=== PATIENT | female | born 1955 | race Caucasian/White ===

== ENCOUNTER 2017-04-15 09:06 | Day surgery (SDC) | payer BC ==
[~2017-04-15] VITALS: Ht 170.2 cm; Wt 79.6 kg
[~2017-04-15 09:06] MED LIST: ASPI325 PO; ASPI81CH PO; ESCI10 PO; ESTR1 PO; ESTR2 PO; IBUP600 PO; LEVSOD137 PO; LIOT5 PO; LISI20 PO; OMEP20ER PO; OXYB5 PO; PROG100; VITAMIN D PO; [UNRECOGNIZED DRUG - OTHER]
== END 2017-04-15 12:28 | disposition home or self-care (01) ==
LOC: ORSCSDS 09:06
PROVIDERS: Internal Medicine Gastroenterology
PROC: 0DBM8ZX Excision of Descending Colon, Via Natural or Artificial Opening Endoscopic, Diagnostic (ICD-10-PCS; principal; 2017-04-15 10:30)
PROC: 0DB68ZX Excision of Stomach, Via Natural or Artificial Opening Endoscopic, Diagnostic (ICD-10-PCS; principal; 2017-04-15 10:30)
PROC: 0D757ZZ Dilation of Esophagus, Via Natural or Artificial Opening (ICD-10-PCS; principal; 2017-04-15 10:30)
PROC: 0DBK8ZX Excision of Ascending Colon, Via Natural or Artificial Opening Endoscopic, Diagnostic (ICD-10-PCS; principal; 2017-04-15 10:30)
PROC: 0DBN8ZX Excision of Sigmoid Colon, Via Natural or Artificial Opening Endoscopic, Diagnostic (ICD-10-PCS; principal; 2017-04-15 10:30)
PROC: 0DB58ZX Excision of Esophagus, Via Natural or Artificial Opening Endoscopic, Diagnostic (ICD-10-PCS; principal; 2017-04-15 10:30)
DX: R13.14 Dysphagia, pharyngoesophageal phase (principal); K21.9 Gastro-esophageal reflux disease without esophagitis; K22.70 Barrett's esophagus without dysplasia; K29.70 Gastritis, unspecified, without bleeding; K44.9 Diaphragmatic hernia without obstruction or gangrene; Z86.010 Personal history of colon polyps; D12.4 Benign neoplasm of descending colon; D12.2 Benign neoplasm of ascending colon; D12.5 Benign neoplasm of sigmoid colon; K57.30 Diverticulosis of large intestine without perforation or abscess without bleeding; Z80.0 Family history of malignant neoplasm of digestive organs
CPT/HCPCS: 88305; J2405

== ENCOUNTER 2018-02-25 08:40 | Day surgery (SDC) | payer BC ==
[~2018-02-25] VITALS: Ht 170.2 cm; Wt 81.6 kg
[~2018-02-25 08:40] MED LIST changes: +ALPHA LIPOIC ACID; +COLE1 PO; +Hair, Skin & N1 EACH PO; +IRON SUPPLEMENT PO; -LEVSOD137 PO; +Prinivil10 MG PO; +Synthroid112 MCG PO; +VITAMIN D34000 UNIT PO
--- NOTE | 2018-02-25 12:57 | NUR ---
02/25/18 Gail Simons PT IS RESTING IN RECLINER WITH AUNT AT CHAIRSIDE, HER AUNT HAD LEFT TO RUN AN ERRAND BUT IS BACK NOW, PT HAS NO PAIN AND NO NAUSEA. WILL GO OVER DISCHARGE TEACHING.
== END 2018-02-25 13:35 | disposition home or self-care (01) ==
LOC: ORSCSDS 08:40
PROVIDERS: Orthopaedic Surgery
PROC: 0LS14ZZ Reposition Right Shoulder Tendon, Percutaneous Endoscopic Approach (ICD-10-PCS; principal; 2018-02-25 09:50)
PROC: 0LQ14ZZ Repair Right Shoulder Tendon, Percutaneous Endoscopic Approach (ICD-10-PCS; principal; 2018-02-25 09:50)
PROC: 0PB94ZZ Excision of Right Clavicle, Percutaneous Endoscopic Approach (ICD-10-PCS; principal; 2018-02-25 09:50)
PROC: 0RNJ4ZZ Release Right Shoulder Joint, Percutaneous Endoscopic Approach (ICD-10-PCS; principal; 2018-02-25 09:50)
DX: M75.111 Incomplete rotator cuff tear or rupture of right shoulder, not specified as traumatic (principal); M75.41 Impingement syndrome of right shoulder; M19.011 Primary osteoarthritis, right shoulder; I10 Essential (primary) hypertension; E78.1 Pure hyperglyceridemia; E03.9 Hypothyroidism, unspecified; K21.9 Gastro-esophageal reflux disease without esophagitis; Z79.82 Long term (current) use of aspirin; Z79.899 Other long term (current) drug therapy
CPT/HCPCS: C1713; J0171; J0690; J1100; J1885; J2250; J2405; J3010; J7120

== ENCOUNTER 2018-08-19 09:31 | Emergency (ER) | payer MEDICARE, BC ==
[~2018-08-19] VITALS: Ht 167.6 cm; Wt 81.7 kg
[2018-08-19 09:57] LABS: Source, Urine Clean Catch
[2018-08-19 10:08] LABS: Appearance, Urine Clear (Clear); Blood, Urine 3+ (Neg); Color, Urine Yellow (P-Yellow); Glucose Qualitative, Urine Neg (Neg); Ketones, Urine 3+ (Neg); Leukocyte Esterase, Urine 2+ (Neg); Nitrite, Urine Neg (Neg); Protein, Urine 2+ (Neg); Specific Gravity, Urine 1.025 (1.003-1.022); Urobilinogen, Urine 1+ (Normal)
[2018-08-19 10:16] LABS: BASOPHILS ABSOLUTE AUTO 0.04 K/mm3 (0.00-0.23); BASOPHILS PERCENT AUTO 0 % (0-2); EOSINOPHILS PERCENT AUTO 0 % (0-6); Hematocrit 43.2 % (33.0-51.0); Hemoglobin 13.9 g/dL (11.5-16.0); IMMATURE GRAN ABSOLUTE AUTO 0.07 K/mm3 (0.00-0.10); IMMATURE GRAN PERCENT AUTO 1 % (0-1); LYMPHOCYTES ABSOLUTE AUTO 1.07 K/mm3 (0.84-5.20); LYMPHOCYTES PERCENT AUTO 8 % (21-46); MONOCYTES ABSOLUTE AUTO 0.82 K/mm3 (0.16-1.47); MONOCYTES PERCENT AUTO 6 % (4-13); Mean Corpuscular HGB 28.3 pg (26.0-34.0); Mean Corpuscular HGB Conc 32.2 g/dL (31.5-36.5); Mean Corpuscular Volume 88 fL (80-100); Mean Platelet Volume 9.1 fL (9.1-12.4); NEUTROPHILS ABSOLUTE AUTO 11.19 K/mm3 (1.96-9.15); NEUTROPHILS PERCENT AUTO 85 % (41-73); Platelet Count 306 K/mm3 (150-400); RDW Coefficient Variation 13.2 % (11.7-14.2); RDW Standard Deviation 42.8 fL (35.1-46.3); Red Blood Cell Count 4.92 M/mm3 (3.80-5.20); White Blood Cell Count 13.19 K/mm3 (4.00-11.30)
[2018-08-19 10:20] LABS: Bilirubin, Urine 1+ (Neg)
[2018-08-19 10:24] LABS: Bacteria Mod /hpf; Squamous Epithelial Cells Many /hpf (Few)
[2018-08-19 10:25] LABS: Mucus Light (0-Heavy)
[2018-08-19 10:41] LABS: Alanine Aminotransfer (ALT/SGP 41 U/L (12-78); Albumin, Blood 3.7 g/dL (3.4-5.0); Albumin/Globulin Ratio 0.8 (0.8-1.8); Alk Phos 118 U/L (50-136); Anion Gap 8 mmol/L (6-16); Aspartate Aminotrans (AST/SGOT 41 U/L (12-37); Bilirubin, Total 0.5 mg/dL (0.1-1.0); Blood Urea Nitrogen 19 mg/dL (8-24); Bun/Creatinine Ratio 19.9 (12.0-20.0); CO2, Blood 23 mmol/L (21-32); Calcium, Blood 9.2 mg/dL (8.5-10.1); Chloride, Blood 97 mmol/L (98-108); Creatinine, Blood 0.96 mg/dL (0.40-1.00); Globulin, Blood 4.5 g/dL (2.2-4.0); Glomerular Filtration Rate >60 (60-); Glucose, Blood 121 mg/dL (70-99); Sodium, Blood 128 mmol/L (136-145); Total Protein, Blood 8.2 g/dL (6.4-8.2)
[2018-08-19 11:32] LABS: Source, Urine Catheter
[2018-08-19 11:36] LABS: Appearance, Urine Clear (Clear); Bilirubin, Urine Neg (Neg); Blood, Urine 3+ (Neg); Color, Urine Yellow (P-Yellow); Glucose Qualitative, Urine Neg (Neg); Ketones, Urine 3+ (Neg); Leukocyte Esterase, Urine 1+ (Neg); Nitrite, Urine Neg (Neg); Protein, Urine 2+ (Neg); Urobilinogen, Urine NORM (Normal)
[2018-08-19 12:00] LABS: White Blood Cells, Urine 0-2 /hpf (0-5)
[2018-08-19 12:02] LABS: Bacteria Few /hpf; Squamous Epithelial Cells Mod /hpf (Few)
[2018-08-19 12:03] LABS: Mucus Mod (0-Heavy)
[2018-08-19] MEDS ORDERED: Zithromax250 MG PO (13:41)
[2018-10-28] MEDS ORDERED: ASCO500 PO (09:30)
[2018-10-28] MEDS ORDERED: ALPHA LIPOIC ACID PO (09:31)
[2018-10-28] MEDS ORDERED: NAPR500 PO (09:32)
== END 2018-08-19 13:55 | disposition home or self-care (01) ==
LOC: ER 09:31
PROVIDERS: Emergency Medicine
DX: J18.9 Pneumonia, unspecified organism (principal); I10 Essential (primary) hypertension; E03.9 Hypothyroidism, unspecified
CPT/HCPCS: 36415; 71046; 80053; 81001; 83690; 85025; 87086; 93005; 93010; 96361; 96374; 99284-25; J1885; J7120; P9612

== ENCOUNTER 2018-11-09 16:09 | Inpatient (IN) | payer MEDICARE, BC ==
[~2018-11-09] VITALS: Ht 167.6 cm; Wt 81.1 kg
[~2018-11-09 16:09] MED LIST changes: +ALPHA LIPOIC ACID PO; +ASCO500 PO; +NAPR500 PO; +Zithromax250 MG PO
--- NOTE | 2018-11-11 08:13 | NUR ---
PT ADMITTED TO [facility]. AGREES WITH PLANNED SURGERY. LUNG SOUNDS CLEAR.
--- NOTE | 2018-11-11 08:18 | NUR ---
NOZIN NO NARES BILATERALLTY.
--- NOTE | 2018-11-11 08:48 | NUR ---
UP TO BATHROOM TO VOID.
--- NOTE | 2018-11-11 12:10 | NUR ---
pt arrived to the room via own bed, a/0 x 4, pleasant/cooperative, family with pt. post op vs commenced and stable. pt denies n/v. Spinal anesthesia done in surgery with sensation to L3, unable to wiggle toes, capillary refill <3 seconds, ble warm/pink.
--- NOTE | 2018-11-11 17:51 | NUR ---
SHIFT SUMMARY: PHIL HAD AN ELECTIVE RIGHT HIP ARTHROPLASTY BY DR. WEBER TODAY. SHE HAS BEEN UP AND WALKING, WORKED WITH PT THIS AFTERNOON. SHE IS TOLERATING PO INTAKE WELL. CRISTIAN HOSE, PAS, AND POLAR PACK IN PLACE. A&O X4. SHE IS ABLE TO MAKE HER NEEDS KNOWN. SHE HAS VOIDED POST-OPERATIVELY. SHE HAS THE HISTORY OF NEUROPATHY IN HER FEET, HYPOTHYROIDISM, HTN, ARTHRITIS, ANEMIA, GERD AND REMOTE HISTORY OF CHOKING EASILY. SHE IS LYING IN THE RECLINER WITH HER CALL LIGHT IN REACH.
[2018-11-12 04:23] LABS: BASOPHILS ABSOLUTE AUTO 0.02 K/mm3 (0.00-0.23); BASOPHILS PERCENT AUTO 0 % (0-2); EOSINOPHILS PERCENT AUTO 0 % (0-6); Hematocrit 34.1 % (33.0-51.0); Hemoglobin 11.1 g/dL (11.5-16.0); IMMATURE GRAN ABSOLUTE AUTO 0.05 K/mm3 (0.00-0.10); IMMATURE GRAN PERCENT AUTO 0 % (0-1); LYMPHOCYTES ABSOLUTE AUTO 1.53 K/mm3 (0.84-5.20); LYMPHOCYTES PERCENT AUTO 12 % (21-46); MONOCYTES PERCENT AUTO 6 % (4-13); Mean Corpuscular HGB 28.2 pg (26.0-34.0); Mean Corpuscular HGB Conc 32.6 g/dL (31.5-36.5); Mean Corpuscular Volume 87 fL (80-100); Mean Platelet Volume 8.6 fL (9.1-12.4); NEUTROPHILS ABSOLUTE AUTO 10.18 K/mm3 (1.96-9.15); NEUTROPHILS PERCENT AUTO 81 % (41-73); Platelet Count 295 K/mm3 (150-400); RDW Coefficient Variation 13.3 % (11.7-14.2); RDW Standard Deviation 42.3 fL (35.1-46.3); Red Blood Cell Count 3.93 M/mm3 (3.80-5.20); White Blood Cell Count 12.58 K/mm3 (4.00-11.30)
[2018-11-12 04:39] LABS: Anion Gap 5 mmol/L (6-16); Blood Urea Nitrogen 24 mg/dL (8-24); Bun/Creatinine Ratio 26.1 (12.0-20.0); CO2, Blood 30 mmol/L (21-32); Chloride, Blood 103 mmol/L (98-108); Creatinine, Blood 0.92 mg/dL (0.40-1.00); Glomerular Filtration Rate >60 (60-); Glucose, Blood 116 mg/dL (70-99); Potassium, Blood 4.5 mmol/L (3.5-5.5); Sodium, Blood 138 mmol/L (136-145)
--- NOTE | 2018-11-12 06:03 | NUR ---
Patient A/O x4. VSS. CMS intact. Ambulating in hallway with staff. Complaints of moderate pain, medicated as ordered. Voiding freely. Polar Ice applied to R hip. Dressing D/C/I.
[2018-11-12] MEDS ORDERED: Aspir 8181 MG PO (08:38)
[2018-11-12] MEDS ORDERED: Percocet 5-3251 EACH PO (08:39)
--- NOTE | 2018-11-12 10:31 | NUR ---
THERAPY: PT UP TO WORK WITH THERAPY. AMBULATING WELL. PAIN MANAGED WITH PRN AND SCHEDULED MEDS.
--- NOTE | 2018-11-12 15:25 | NUR ---
DISCHARGE: PT DC TO HOME AT THIS TIME WITH FAMILY. VERBALIZED UNDERSTANDING OF INSTRUCTIONS, FOLLOW UP, PROBLEMS TO REPORT AND MEDICATIONS. SCRIPT FOR PAIN MEDS GIVEN. ASPIRIN CALLED TO PHARMACY. PT LEFT VIA WHEELCHAIR TO CAR WITH BELONGINGS.
== END 2018-11-12 15:32 | disposition home or self-care (01) | DRG 470 ==
LOC: SURS 11-11 07:24 → PRE IP 11-11 07:30 → SURS 11-11 12:25
PROVIDERS: ADMIT Orthopaedic Surgery
PROC: 0SR904A Replacement of Right Hip Joint with Ceramic on Polyethylene Synthetic Substitute, Uncemented, Open Approach (ICD-10-PCS; principal; 2018-11-11 08:45)
DX: M16.11 Unilateral primary osteoarthritis, right hip (principal); E87.1 Hypo-osmolality and hyponatremia; I10 Essential (primary) hypertension; E03.9 Hypothyroidism, unspecified; K21.9 Gastro-esophageal reflux disease without esophagitis
CPT/HCPCS: 36415; 72170; 80048; 85025; 86850; 86900; 86901; 88300; 97110; 97116; 97162; C1776; J0171; J0690; J0735; J1100; J1885; J2250; J2370; J2405; J2795; J3010; J7120

== ENCOUNTER 2019-01-11 08:04 | Day surgery (SDC) | payer MEDICARE, BC ==
[~2019-01-11] VITALS: Ht 170.2 cm; Wt 80.8 kg
[~2019-01-11 08:04] MED LIST changes: +Aspir 8181 MG PO; +Percocet 5-3251 EACH PO
--- NOTE | 2019-01-11 09:27 | NUR ---
01/11/19 0927 Re Marroquin INTERSCALENE NERVE BLOCK PERFORMED IN PRE-OP. 0913: TIME OUT 0914: SITE CHECK PERFORMED 0915: PROCEDURE START 0920: PROCEDURE END PULSE OX ON THROUGHOUT PROCEDURE, VS STABLE, PT TOLERATED WELL, NO ISSUES OR COMPLICATION. POST-PROCEDURE VS: 114/69, 85BPM, 95%, 18RR.
== END 2019-01-11 12:43 | disposition home or self-care (01) ==
LOC: ORSCSDS 08:04
PROVIDERS: Orthopaedic Surgery
PROC: 0RBJ4ZZ Excision of Right Shoulder Joint, Percutaneous Endoscopic Approach (ICD-10-PCS; principal; 2019-01-11 09:30)
PROC: 0LQ14ZZ Repair Right Shoulder Tendon, Percutaneous Endoscopic Approach (ICD-10-PCS; principal; 2019-01-11 09:30)
PROC: 0RNJ4ZZ Release Right Shoulder Joint, Percutaneous Endoscopic Approach (ICD-10-PCS; principal; 2019-01-11 09:30)
DX: M75.101 Unspecified rotator cuff tear or rupture of right shoulder, not specified as traumatic (principal); M75.41 Impingement syndrome of right shoulder; I10 Essential (primary) hypertension; K21.9 Gastro-esophageal reflux disease without esophagitis; Z79.899 Other long term (current) drug therapy
CPT/HCPCS: 82947; C1713; J0171; J0690; J1100; J2250; J2370; J2405; J2704; J2710; J3010; J7120

== ENCOUNTER → 2019-08-10 | Outpatient (CLI) | payer MEDICARE, BC ==
[2019-08-11 09:31] LABS: Candida species (DNA Probe) Negative (NEGATIVE); G. vaginalis (DNA Probe) Negative (NEGATIVE); T. vaginalis (DNA Probe) Negative (NEGATIVE)
== END | disposition home or self-care (01) ==
LOC: LAB 11:57 → LAB SHORT 11:57
PROVIDERS: Obstetrics & Gynecology
DX: N76.0 Acute vaginitis (principal)
CPT/HCPCS: 87480; 87510; 87660

== ENCOUNTER 2020-05-25 12:22 | Day surgery (SDC) | payer MEDICARE, BC ==
[~2020-05-25] VITALS: Ht 167.6 cm; Wt 80.9 kg
== END 2020-05-25 15:30 | disposition home or self-care (01) ==
LOC: ORSCSDS 12:22
PROVIDERS: Internal Medicine Gastroenterology
PROC: 0DB78ZX Excision of Stomach, Pylorus, Via Natural or Artificial Opening Endoscopic, Diagnostic (ICD-10-PCS; principal; 2020-05-25 13:45)
PROC: 0DBH8ZX Excision of Cecum, Via Natural or Artificial Opening Endoscopic, Diagnostic (ICD-10-PCS; principal; 2020-05-25 13:45)
PROC: 0DBM8ZX Excision of Descending Colon, Via Natural or Artificial Opening Endoscopic, Diagnostic (ICD-10-PCS; principal; 2020-05-25 13:45)
PROC: 0DB58ZX Excision of Esophagus, Via Natural or Artificial Opening Endoscopic, Diagnostic (ICD-10-PCS; principal; 2020-05-25 13:45)
DX: K22.70 Barrett's esophagus without dysplasia (principal); K31.7 Polyp of stomach and duodenum; Z12.11 Encounter for screening for malignant neoplasm of colon; Z86.010 Personal history of colon polyps; D12.0 Benign neoplasm of cecum; D12.4 Benign neoplasm of descending colon; K57.30 Diverticulosis of large intestine without perforation or abscess without bleeding; Z79.899 Other long term (current) drug therapy; Z80.0 Family history of malignant neoplasm of digestive organs; I10 Essential (primary) hypertension; E03.9 Hypothyroidism, unspecified
CPT/HCPCS: 82947; 88305; 88342; J2405; J2704; J7120

== ENCOUNTER 2021-02-12 07:48 | Day surgery (SDC) | payer MEDICARE, BC ==
[~2021-02-12] VITALS: Ht 167.6 cm; Wt 84.8 kg
[2021-02-12] MEDS ORDERED: COLESTID1 G1 PO (08:23)
== END 2021-02-12 11:25 | disposition home or self-care (01) ==
LOC: ORSCSDS 07:48
PROVIDERS: Orthopaedic Surgery
PROC: 0RBX0ZZ Excision of Left Finger Phalangeal Joint, Open Approach (ICD-10-PCS; principal; 2021-02-12 09:00)
PROC: 0LX80ZZ Transfer Left Hand Tendon, Open Approach (ICD-10-PCS; principal; 2021-02-12 09:00)
PROC: 0RQT0ZZ Repair Left Carpometacarpal Joint, Open Approach (ICD-10-PCS; principal; 2021-02-12 09:00)
DX: M18.12 Unilateral primary osteoarthritis of first carpometacarpal joint, left hand (principal); M25.842 Other specified joint disorders, left hand; I10 Essential (primary) hypertension; K21.9 Gastro-esophageal reflux disease without esophagitis; E03.9 Hypothyroidism, unspecified; Z79.899 Other long term (current) drug therapy
CPT/HCPCS: A9270; C1713; J0690; J1100; J2250; J2405; J2704; J2795; J3010; J7120

== ENCOUNTER 2021-08-25 17:55 | Emergency (ER) | payer MEDICARE, BC ==
[~2021-08-25] VITALS: Ht 167.6 cm; Wt 79.4 kg
[~2021-08-25 17:55] MED LIST changes: +COLESTID1 G1 PO
== END 2021-08-25 20:45 | disposition home or self-care (01) ==
LOC: ER 17:55
DX: S91.012A Laceration without foreign body, left ankle, initial encounter (principal); I10 Essential (primary) hypertension; E03.9 Hypothyroidism, unspecified; W26.8XXA Contact with other sharp object(s), not elsewhere classified, initial encounter; Z91.09 Other allergy status, other than to drugs and biological substances; Z79.899 Other long term (current) drug therapy
CPT/HCPCS: 12001; 99282-25

== ENCOUNTER 2023-05-18 09:17 | Day surgery (SDC) | payer MEDICARE, BC ==
[~2023-05-18] VITALS: Ht 167.6 cm; Wt 85.7 kg
[~2023-05-18 09:17] MED LIST changes: +Lactated Ringer's 1,000 ML IV ONE; +PROBIOTIC1 EA14 PO; +SOLI5; +propofoL 50 ML IV ONE
[2023-05-18] MEDS ORDERED: Lactated Ringer's 1,000 ML IV ONE (10:38)
[2023-05-18 12:41] VITALS: BP 138/83
== END 2023-05-18 12:02 | disposition home or self-care (01) ==
LOC: ORSCSDS 09:17
PROVIDERS: Internal Medicine Gastroenterology
PROC: 0DB68ZX Excision of Stomach, Via Natural or Artificial Opening Endoscopic, Diagnostic (ICD-10-PCS; principal; 2023-05-18 10:30)
PROC: 0DB58ZX Excision of Esophagus, Via Natural or Artificial Opening Endoscopic, Diagnostic (ICD-10-PCS; principal; 2023-05-18 10:30)
PROC: 0D757ZZ Dilation of Esophagus, Via Natural or Artificial Opening (ICD-10-PCS; principal; 2023-05-18 10:30)
DX: K22.70 Barrett's esophagus without dysplasia (principal); K22.2 Esophageal obstruction; Z86.010 Personal history of colon polyps; Z80.0 Family history of malignant neoplasm of digestive organs; Z79.899 Other long term (current) drug therapy
CPT/HCPCS: 87081; 88305; J2704; J7120

== ENCOUNTER 2023-09-03 07:04 | Emergency (ER) | payer BC, MEDICARE ==
[~2023-09-03] VITALS: Ht 167.6 cm; Wt 86.2 kg
[~2023-09-03 07:04] MED LIST changes: -Lactated Ringer's 1,000 ML IV ONE; -propofoL 50 ML IV ONE
[2023-09-03 07:13] VITALS: BP 144/83
== END 2023-09-03 08:26 | disposition home or self-care (01) ==
LOC: ER 07:04
DX: S80.11XA Contusion of right lower leg, initial encounter (principal); E03.9 Hypothyroidism, unspecified; I10 Essential (primary) hypertension; W18.30XA Fall on same level, unspecified, initial encounter; Y99.0 Civilian activity done for income or pay; Z79.899 Other long term (current) drug therapy; Z88.8 Allergy status to other drugs, medicaments and biological substances
CPT/HCPCS: 73562-RT; 73610; 99283-25